=== PATIENT | male | born 1960 | race Caucasian/White ===

== ENCOUNTER 2018-10-16 14:40 | Inpatient (IN) | payer OTHER ==
[~2018-10-16] VITALS: Ht 185.4 cm; Wt 123.4 kg
[2018-10-16 14:45] VITALS: Ht 185.4 cm; Wt 123.4 kg
--- NOTE | 2018-10-16 15:06 | NUR ---
AMBULATORY TO BED 5. C/O GENERALIZED ABDOMINAL PAIN X2 WEEKS. PT STATES ABDOMINAL "DISCOMFORT".
[2018-10-16 15:42] LABS: UA SPECIFIC GRAVITY >=1.030 (1.005-1.035); microscopic required? YES; urine erythrocyte NEGATIVE (NEGATIVE)
[2018-10-16 15:54] LABS: BASOPHIL % 0.7 % (0-2); CALCIUM 10.5 mg/dL (8.5-10.1); CARBON DIOXIDE 28.3 mmol/L (21-32); CREATININE SERUM 2.5 mg/dL (0.7-1.3); PLATELET COUNT 267 x10^3mcL (130-400); POTASSIUM SERUM 4.3 mmol/L (3.5-5.1); RED CELL DISTRIBUTION WIDTH 13.4 % (11.5-14.5)
[2018-10-16 15:58] LABS: ALBUMIN 4.2 g/dL (3.4-5.0); BILIRUBIN TOTAL 0.6 mg/dL (0.20-1.00)
--- NOTE | 2018-10-16 17:02 | NUR ---
PT SITTING ON GURNEY WITH NAD. BREATHING EVEN AND UNLABORED. PT IS HOOKED UP TO FULL MONITORS, WILL CONTINUE TO MONITOR
--- NOTE | 2018-10-16 18:40 | NUR ---
PT STATES PAIN IS 8/10 AT THIS TIME. PT STATES " I WAS JUST TOLD THAT I HAVE DIABETES 2 WEEKS AGO AND GIVEN A MEDICATION FOR DIABETES AND ONE TO PROTECT MY KIDNEYS, IM NOT SURE OF HOW TO CHECK MY BLOOD SUGAR OR WHAT FOODS TO EAT." PT INSTUCTED ON FOODS AND HOW TO CHECK BLOOD SUGAR. INSTRUCTED PT THAT WHEN HE IS ADMITTED, THERE WILL BE MORE PEOPLE TO GO OVER THAT INFORMATION WELL.
--- NOTE | 2018-10-16 19:48 | NUR ---
REPORT GIVEN TO FLOYD STEINBERG TO ASSUME CARE OF PT.
[2018-10-16 20:27] LABS: CHOLESTEROL/HDL RATIO 3.1; MAGNESIUM 2.3 mg/dL (1.8-2.4); PHOSPHOROUS 5.6 mg/dL (2.5-4.9)
--- NOTE | 2018-10-16 20:32 | NUR ---
[facility] ACCOMPANIED BY RN AND TRANSPORTER. PT A/A/O X 4, CALM, COOPERATIVE. AMBULATORY, NO GAIT OR BALANCE IMPAIRMENT NOTED WALKING FROM [facility] TO BED. ON TELE # 5, NSR, HR 71, DENIES CHEST PAIN OR DISCOMFORT AT THIS TIME. NO ACUTE RESPIRATORY DISTRESS NOTED. ABD FIRM, DISTENDED, HYPERACTIVE BOWEL SOUNDS X 4 QUADS, LAST BM 10/15/18, FORMED, C/O INTERMITTENT DULL PAIN 8/10, EXACERBATED BY EATING FOOD, RELIEVED MILDLY BY REST. IV SITE LAC 20G, CDI. ORIENTED PT TO ROOM, BED CONTROLS, CALL LIGHT SYSTEM. SIDE RAILS UP X 2, BED IN LOW POSITION. PT RECENTLY DIAGNOESD WITH DM2, AND LACKS EDUCATION RE: MATTER. WILL ENDORSE TO FLOYD TRIPLETT.
[2018-10-16 21:27] VITALS: BP 108/60
--- NOTE | 2018-10-16 22:53 | NUR ---
PT. C/O ABD. PAIN,LEVEL 8-9/10. PT. STATED THAT HIS ABD. PAIN REOCCURED AFTER EATING. PRN MORPHINE, IVP GIVEN ORDERED. WILL MONITOR. CALL LIGHT REMAINS WITHIN REACH.
--- NOTE | 2018-10-17 01:24 | NUR ---
PT. C/O ABD. PAIN, 5/6-10. PRN NORCO GIVEN. WILL MONITOR.
--- NOTE | 2018-10-17 02:50 | NUR ---
PT. APPEARS TO BE SLEEPING AT THIS TIME. EYES CLOSED. APPEARS COMFORTABLE. IVF INFUSING WELL. NSR ON MONITOR. CALL LIGHT REMAINS WITHIN REACH.
[2018-10-17 05:51] VITALS: BP 111/48
--- NOTE | 2018-10-17 06:17 | NUR ---
PT. AWAKE, SITTING UP IN BED. C/O ABD. PAIN, 7-11/24. PRN MORPHINE IVP GIVEN ORDERED. PT. DENIES NAUSEA. PT. ASKED ABOUT EFFECTIVENESS OF MEDICATION. PER PT, HE'S NOT SURE IF MEDICATION IS WORKING OR IF THE PAIN LEVEL DECREASES. HE ONLY BELIEVES THAT HE FALLS ASLEEP AT TIMES AFTER ADMINISTRATION OF PAIN MEDICATION BECAUSE HE'S TIRED. BLOOD PRESSURE 111/48. IV SITE REMAINS INTACT. WILL ENDORSE PT. CARE TO INCOMING NURSE.
[2018-10-17 06:19] LABS: BASOPHIL % 0.3 % (0-2); PLATELET COUNT 258 x10^3mcL (130-400); RED CELL DISTRIBUTION WIDTH 13.5 % (11.5-14.5)
[2018-10-17 06:33] LABS: CALCIUM 9.6 mg/dL (8.5-10.1); CARBON DIOXIDE 23.2 mmol/L (21-32); MAGNESIUM 2.2 mg/dL (1.8-2.4); PHOSPHOROUS 4.3 mg/dL (2.5-4.9); POTASSIUM SERUM 4.1 mmol/L (3.5-5.1)
--- NOTE | 2018-10-17 07:08 | NUR ---
BOXING MACHINE OPERATOR AT BEDSIDE W/ EXAM IN PROGRESS AT THIS TIME.
--- NOTE | 2018-10-17 07:10 | NUR ---
RECEIVED PT FROM TAR HEATER OPERATOR RN. Colten/CHRISSY. TELE#5. DENIES ANY CHEST PAIN/PRESSURE. RESPIRATIONS EQUAL AND UNLABORED ON RA. DENIES SOB. US JOY LOADER AT BEDSIDE FOR US ABDOMEN. PT C/O DULL INTERMITTENT ABDOMINAL PAIN 09/24, SINCE RECEIVING MORPHINE THIS AM. IV TO LAC PATENT AND INFUSING. NO REDNESS OR SWELLING NOTED. WILL CONTINUE TO MONITOR. CALL LIGHT IN REACH.
[2018-10-17 08:34] VITALS: BP 112/49
--- NOTE | 2018-10-17 08:58 | NUR ---
PT SITTING UP IN BED. NO ACUTE RESP DISTRESS NOTED ON RA. PT DENIES ANY CHEST PAIN/PRESSURE. GIVEN PO MEDS. TOLERATED WELL. PT C/O ABDOMINAL PAIN TO MUQ DULL 11/24. MEDICATED PER EMAR. PT STATES PAIN HAS BEEN CONSTANT OVER PAST FEW DAYS. PT STATES IT GETS WORSE AFTER EATING. IV PATENT AND INFUSING TO LAC. NO REDNESS OR SWELLING NOTED. WILL CONTINUE TO MONITOR. CALL LIGHT IN REACH. BED IN LOWEST POSITION.
[2018-10-17 12:25] VITALS: BP 127/72
--- NOTE | 2018-10-17 14:04 | NUR ---
PAGED DR. CHAO REGARDING ACCU CHECKS AWAITING CALL BACK.
--- NOTE | 2018-10-17 14:09 | NUR ---
SPOKE WITH DR. CHAO REGARDING ACCUCHECKS PER DR. CHAO WILL PUT IN ACCUCHECKS.
--- NOTE | 2018-10-17 14:46 | NUR ---
1. Recommend progressing diet to CCHO, low fat when medically appropriate/ tolerated.
--- NOTE | 2018-10-17 14:46 | NUR ---
Initial Nutrition Assessment: 201T/B CHELLY PENA IA HR Dx: Acute renal failure PMHx: DM( diagnosed 2 weeks ago), HTN, GERD??? PSHx: not documented Labs: BG 114H, BUN 38H, CREAT 2.0H, A1C 6.3H Meds: Colace, morphine, zofran Diet: no order yet PO Intake: NPO since admission Ht: 185.42cm (73") Wt: 123.3 kg (271#) BMI: 35.9 kg/m2 Bed scale: 276.2# IBW: 184# (83.6 kg) %IBW: 147 UBW: 284# Age: 58/M Food Allergies: NKFA Skin: intact Kevin: 22 Edema: none GI: c/o dull intermittent abd pain Last BM: 10/15 Per H&P, Pt is a 58 YO with PMH of HTNm newly diagnosed DM, GERD??? came to the emergency room with c/o dull abdominal pain for past 2 weeks associated with food intake. Pain localizes in lower abdominal quadrant. Pt reports decreased appetite and intentional 10 lbs weight loss (284 lbs--->272) within past week. Pt was diagnosed with DM and started with metformin 2 weeks ago. RDN Visit (10/17): Patient was alert and oriented and was very interested in receibving diet education. Diabetes diet and low fat diet education was provided. FNS received education consult for 'DM, Cardiac diet' on 10/17/18. Spoke with Dr. Sorto that patient currently does not have any diet order. Dr. Sorto said that she will put NPO diet order. Also, she was not sure if the diet will be progressed tomorrow. Discussed recommendations with her. Problem with: N/V/D/C: no Problems with: Chewing/Swallowing: no Current appetite: good Recent wt change: 8# x 15 days %wt change: -2.7% (significant) Vitamin/Supplement use: none Special diet at home: regular Physical activity: patient was doing gym regularly (Mon-Fri), stopped 3 month ago. Want to re-start it soon. Nutrition education given: Diabetes diet education was provided using [facility] handout on 'Type 2 Diabetes Nutrition Therapy'. Concepts like high fiber diet, label reading, types of carbohydrates and portion control were discussed. Patient verbalized understanding and did not have any questions at this time. Food-drug interactions: Colace- high fiber w/2044-4367 ml fluids Education given: yes Estimated Nutritional Needs Based on adjusted body weight 93.5 kg Energy: 9928-1733 kcal/d (20-25 kcal/kg) Protein: 74.8-93.5 g/d (0.8-1.0 g/kg) - preserve LBM Fluid: 0083-9840 ml/d (1 ml/kcal) or per doctor Nutrition Diagnosis 1. Food and nutrition related knowledge deficit related to no prior exposure to nutrition education as evidenced by A1C 6.3 and patient stating no knowledge about food groups, carbohydrates and its impact on blood sugar. 2. Altered nutrition related lab values related to renal and endocrine insufficiency as evidenced by BUN: 38, Creat 2.0, A1C 6.3. Intervention 1. Recommend progressing diet to CCHO, low fat when medically appropriate/ tolerated. Monitor/Evaluate Goal: PO intake at least 75% of estimated needs Monitor: PO intake, Labs, GI function F/U in 2-3 days as high risk 7/5-6
[2018-10-17] MEDS ORDERED: METOPROLOL SUCC50 M2 PO (16:10)
[2018-10-17] MEDS ORDERED: FINASTERIDE5 M1 PO (16:12)
[2018-10-17] MEDS ORDERED: ALLOPURINOL100 MG PO (16:13)
[2018-10-17] MEDS ORDERED: HYT2 PO (16:14)
[2018-10-17] MEDS ORDERED: LIPITOR80 MG PO (16:15)
[2018-10-17] MEDS ORDERED: ASPIR LOW81 MG PO (16:17)
[2018-10-17] MEDS ORDERED: ZIA10 PO (16:20)
[2018-10-17] MEDS ORDERED: HYDROCHLOROTH12.5 M3 PO (16:22)
[2018-10-17] MEDS ORDERED: ZES10 PO (16:24)
--- NOTE | 2018-10-17 16:24 | NUR ---
PT IN BED RESTING COMFORTABLY. NO ACUTE RESP DISTRESS NOTED ON RA. PT STATES PAIN TO ABDOMEN IS STILL THERE DULL BUT TOLERABLE SINCE RECEIVING MORPHINE. IV PATENT AND INFUSING TO LAC. NO REDNESS OR SWELLING NOTED. BLOOD SUGAR CHECKED WAS 102. NO COVERAGE NEEDED. WILL CONTINUE TO MONITOR. CALL LIGHT IN REACH. BED IN LOWEST POSITION.
[2018-10-17 16:52] VITALS: BP 126/80
--- NOTE | 2018-10-17 18:17 | NUR ---
PT ASKING TO EAT SOMETHING. PT ASKING IF HE CAN JUST HAVE SOME APPLE JUICE. CALLED CHAIN OFFBEARER PHONE SPOKE WITH DR. SAWYER PER DR. SAWYER "WILL LET NIGHT TEAM KNOW"
--- NOTE | 2018-10-17 18:27 | NUR ---
PT SITTING UP AT BEDSIDE. NO ACUTE RESP DISTRESS NOTED ON RA. TELE#5. DENIES CHEST PAIN/PRESSURE. IV TO LAC PATENT AND INFUSING. NO REDNESS OR SWELLING NOTED. PT STILL ASKING TO EAT. PT STATES I UNDERSTAND ITS NOT YOU, I JUST WISH I COULDVE EATEN EARLIER. PT STATES ABDOMINAL PAIN TO MUQ IS STILL THERE AND DULL. WILL ENDORSE TO NURSING ADMIN RN. CALL LIGHT IN REACH. BED IN LOWEST POSITION.
--- NOTE | 2018-10-17 19:21 | NUR ---
PT C/O ABDOMINAL PAIN TO MUQ DULL 01/24. MEDICATED PER EMAR. WILL ENDORSE TO CAR CLEANER RN.
[2018-10-17 19:33] VITALS: BP 108/58
--- NOTE | 2018-10-17 19:45 | NUR ---
RECIEVED PT FROM FLOYD RUBALCAVA. PT IS A/OX4, PT IS ON TELE #5 NSR HR 62. PT DENIES ANY CHEST PAIN OR SOB. PT HAS PALPABLE PULSES AND NO EDEMA NOTED. PT LUNG SOUNDS CLEAR BILATERALLY ON RA. BRETHE SOUNDS ARE EVEN AND UNEVEN. PT ABD IS DISTENDED AND FIRM. PT LAST BM WAS 10/15. BOWL SOUNDS HYPOACTIVE. PT C/O OF ABD PAIN, AM NURSE FLOYD RUBALCAVA MEDICATED WITH MORPHINE, WILL REASSESS. PT HAS IV TO LAC INFUSING WELL. CALL LIGHT WITHIN REACH, WILL CONTINUE TO MONITOR.
--- NOTE | 2018-10-17 21:55 | NUR ---
TALKED TO DR. SINGH FOR PT NPO STATUS. PER MD ORDER PT CAN EAT UP UNTIL MIDNIGHT. NPO AFTER MIDNIGHT. PT IS INFORMED.
--- NOTE | 2018-10-18 | NUR ---
PT ASLEEP. BREATHING EVEN AND UNLABORED. NO RESP DISTRESS NOTED. WILL CONITNUE TO MONITOR. CALL LIGHT WITHIN REACH
--- NOTE | 2018-10-18 02:56 | NUR ---
PT C/O OF PAIN. GAVE PT MORPHINE PER MD ORDERS. WILL CONTINUE TO MONITOR.
[2018-10-18 04:41] VITALS: BP 117/71
[2018-10-18 06:10] LABS: BASOPHIL % 0.3 % (0-2); PLATELET COUNT 237 x10^3mcL (130-400); RED CELL DISTRIBUTION WIDTH 12.7 % (11.5-14.5)
--- NOTE | 2018-10-18 06:18 | NUR ---
PT SLEPT ON AND OFF THROUGH OUT THE NIGHT. PT BREATHING IS EVEN AND UNLABORED. PT C/O OF PAIN, GAVE NORCO X2, MORPHINE X1. PT DENIES ANY CHEST PAIN OR SOB AT THIS TIME. PT IS NPO SINCE MIDNIGHT. PT IV TO LAC INTACT AND INFUSING WELL. NO ACUTE CHANGES NOTED. PT COOPERATIVE WITH NURSING CARE.
[2018-10-18 06:36] LABS: ALBUMIN 3.7 g/dL (3.4-5.0); BILIRUBIN TOTAL 0.6 mg/dL (0.20-1.00); CALCIUM 9.4 mg/dL (8.5-10.1); CREATININE SERUM 1.5 mg/dL (0.7-1.3); MAGNESIUM 1.9 mg/dL (1.8-2.4); PHOSPHOROUS 4.3 mg/dL (2.5-4.9); POTASSIUM SERUM 4.1 mmol/L (3.5-5.1); TOTAL PROTEIN, SERUM 7.5 g/dL (6.4-8.2)
--- NOTE | 2018-10-18 07:10 | NUR ---
RECEIVED PT FROM MOTOR OPERATOR RN. Colten/CHRISSY. TELE#5. DENIES CHEST PAIN/PRESSURE. RESPIRATIONS EQUAL AND UNLABORED ON RA. DENIES SOB. PT STATES ABDOMINAL PAIN HAS IMPROVED SINCE BEING MEDICATED THIS AM. PT DENIES ANY N/V. IV TO LAC PATENT AND INFUSING. NO REDNESS OR SWELLING NOTED. WILL CONTINUE TO MONITOR. CALL LIGHT IN REACH. BED IN LOWEST POSITION.
--- NOTE | 2018-10-18 08:47 | NUR ---
DR. LOVING AT BEDSIDE. PER DR. LOVING RECOMMENDS HIDA SCAN IF NOT ABLE TO BE DONE TODAY PT OKAY TO START CLEAR LIQUID DIET.
--- NOTE | 2018-10-18 09:01 | NUR ---
SPOKE WITH PAULINE IN NUC MED. PER TARI PT IS OKAY TO HAVE NORCO BEFORE 10 AM, HIDA SCAN WILL BE DONE LATER TODAY AROUND 2PM TO 3PM.
[2018-10-18 09:04] VITALS: BP 130/65
[2018-10-18 09:09] LABS: calcium (part of PTHIC) 9.4 mg/dL (8.7-10.2)
--- NOTE | 2018-10-18 09:35 | NUR ---
PT SITTING UP AT BEDSIDE. NO ACUTE RESP DISTRESS NOTED ON RA. PT STATES PAIN TO ABDOMEN IS TOLERABLE AT THIS TIME. GIVEN PO MEDS. TOLERATED WELL. IV PATENT AND INFUSING TO LAC. NO REDNESS OR SWELLING NOTED. PT TAKEN OFF FLOOR FOR X RAY OF ABDOMEN VIA WHEELCHAIR. CLEAN UP SUPERVISOR NOTIFIED.
--- NOTE | 2018-10-18 10:41 | NUR ---
DR. BELCHER AT BEDSIDE. PER DR. BELCHER PT OKAY TO EAT AFTER HIDA SCAN.
[2018-10-18 11:55] VITALS: BP 112/62
--- NOTE | 2018-10-18 14:12 | NUR ---
PT TAKEN OFF FLOOR FOR HIDA SCAN.
--- NOTE | 2018-10-18 16:40 | NUR ---
SPOKE WITH DR. CHAO REGARDING HIDA SCAN RESULTS. PT WILL POSSIBLE D/C HOME TODAY.
[2018-10-18 16:48] VITALS: BP 100/63
--- NOTE | 2018-10-18 18:17 | NUR ---
PT IN BED RESTING. NO ACUTE RESP DISTRESS NOTED ON RA. PT C/O ABDOMINAL PAIN TO MUQ 7/10. MEDICATED PER EMAR. PT ATE DINNER AND TOLERATED WELL. IV TO LAC PATENT AND INFUSING. NO REDNESS OR SWELLING NOTED. WILL ENDORSE TO TRUCK BODY BUILDER RN. CALL LIGHT IN REACH. BED IN LOWEST POSITION.
--- NOTE | 2018-10-18 19:10 | NUR ---
PT MADE AWARE FOR NEED TO COLLECT STOOL SAMPLE. PT VERBALIZED UNDERTANDING.
--- NOTE | 2018-10-18 19:40 | NUR ---
RECIEVED PT FROM FLOYD RUBALCAVA. PT IS A/O X4 LAYING IN BED. PT IS ON TELE # 5 SR HR 74. PT DENIES ANY CHEST PAIN OR SOB AT THIS TIME. PT IS PULSES ARE PALPABLE, NO EDEMA NOTED. PT BREATHE SOUNDS ARE EVEN AND UNLABORED. PT BREATHE SOUNDS CLEAR NILATERRALY ON RA. NO SIGNS OF RESP DISTRESS NOTED. PT ABD IS DISTENDED, BOWEL SOUNDS HYPOACTIVE. PT LAS BM 10/15. PT C/O OF ABD PAIN BUT STATES IT IS TOLERABLE, REFUSES PAIN MED AT THIS TIME. PT VOIDS REGULARLY. PT IS AMBULATORY. PT IV TO LAC INFUSING WELL. WILL CONTINUE TO MONITOR, CALL LIGHT WITHIN REACH.
[2018-10-18 21:00] VITALS: BP 99/49
--- NOTE | 2018-10-18 21:42 | NUR ---
PT C/O OF ABD PAIN. GAVE NORCO X1 PER MD ORDER. WILL CONT TO MONITOR.
--- NOTE | 2018-10-19 00:17 | NUR ---
PT IS IN BED ASLEEP. NO RESP DISTRESS NOTED. BREATHING EVEN AND UNLABORED. WILL CONT TO MONITOR.
[2018-10-19 05:38] VITALS: BP 109/49
--- NOTE | 2018-10-19 06:10 | NUR ---
PT SLEPT ON AND OFF THROUGH OUT THE NIGHT. PT BREATHING IS EVEN AND UNLABORED. PT C/O OF PAIN, GAVE NORCO X2. PT DENIES ANY CHEST PAIN OR SOB AT THIS TIME. PT IV TO LAC INTACT AND INFUSING WELL. PT ON TELE #5 NSR. PT HAD NO BM DURING SHIFT. PT HAD NO ACUTE CHANGES NOTED. PT COOPERATIVE WITH NURSING CARE.
[2018-10-19 06:35] LABS: CALCIUM 8.5 mg/dL (8.5-10.1); CARBON DIOXIDE 26.9 mmol/L (21-32); CREATININE SERUM 1.5 mg/dL (0.7-1.3); MAGNESIUM 1.9 mg/dL (1.8-2.4); POTASSIUM SERUM 4.4 mmol/L (3.5-5.1)
[2018-10-19 07:15] LABS: BASOPHIL % 0.7 % (0-2); PLATELET COUNT 218 x10^3mcL (130-400); RED CELL DISTRIBUTION WIDTH 13.1 % (11.5-14.5)
--- NOTE | 2018-10-19 07:35 | NUR ---
RECEIVED PT FROM MINE WEDGE SAWYER. PT AWAKE, ALERT A/OX4. PT ON ROOM AIR WITH NO RESP DISTRESS NOTED. PT ON TELE 5, DENIES CHEST PAIN. PERIPHERAL PULSES PALPABLE, NO EDEMA NOTED. IV ACCESS LAC C/D/I INFUSING NS AT 100ML/HR. PT ABDOMEN DISTENDED AND FIRM WITH ACTIVE BOWEL SOUNDS NOTED. PT REPORTS PAIN 8/10 TO ABDOMEN. PT VOIDING FREELY. PT AMBULATORY WITH NO ISSUES IDENTIFIED. PT REPORTS HE IS "READY TO GO HOME". SAFETY MEASURES IN PLACE, BED LOW AND LOCKED. CALL LIGHT WITHIN REACH.
[2018-10-19 08:16] VITALS: BP 108/56
--- NOTE | 2018-10-19 09:27 | NUR ---
DUE MEDS ADMINISTERED. PT COMPLAINING OF ABDOMINAL PAIN, ASKING FOR PAIN MED. NORCO ADMINISTERED ORDERED PRN (SEE EMAR). ABDOMEN DISTENDED AND FIRM WITH BOWEL SOUNDS NOTED. PT LAST BM 10/15/18, PER PT "HAVING A BOWEL MOVEMENT ISNT MY CONCERN". WILL CONTINUE TO MONITOR.
--- NOTE | 2018-10-19 11:00 | NUR ---
PT RESTING COMFORTABLY WITH NO ACUTE DISTRESS NOTED. SAFETY MEASURES MAINTAINED.
[2018-10-19 12:12] VITALS: BP 117/59
--- NOTE | 2018-10-19 12:24 | NUR ---
Follow-up Nutrition Assessment: 201T/B CHELLY PENA FU HR Dx: Acute renal failure PMHx: DM (diagnosed 2 weeks ago), HTN, GERD??? Labs: (10/19) BUN 29H, CREAT 1.5H, A1C 6.3H Meds: Colace, morphine, Zofran, Amitiza, D 50%, humulin, Lipitor, zofran Diet: Cardiac PO Intake: (10/19) breakfast 90%, (10/18) dinner 100% Weights: (10/16) 123 kg, (10/19) 127.6 kg Skin: intact Kevin: 22 I/Os: (10/19) 3670/ output not documented Edema: none GI: Last BM: 10/15 RDN Visit (10/19): Patient was alert and oriented and said that he ate all of his breakfast this morning. Patient said that he is getting discharged tomorrow. Diabetic diet education was provided during initial assessment along with NCM handout. Patient is asking for another handout that explains the concepts visually and with more pictures. This will be provided to the patient by today. Spoke with JULI Alexandre and she agreed with the recommendations. Estimated Nutritional Needs Based on adjusted body weight 93.5 kg Energy: 8650-3815 kcal/d (20-25 kcal/kg) Protein: 74.8-93.5 g/d (0.8-1.0 g/kg) - preserve LBM Fluid: 9880-3366 ml/d (1 ml/kcal) or per doctor Nutrition Diagnosis 1.Food and nutrition related knowledge deficit related to no prior exposure to nutrition education as evidenced by A1C 6.3 and patient stating no knowledge about food groups, carbohydrates and its impact on blood sugar. (ongoing) 2.Altered nutrition related lab values related to renal and endocrine insufficiency as evidenced by BUN: 29, Creat 1.5, A1C 6.3. (ongoing) Intervention 1. Recommend CCHO(Cardiac) diet. Monitor/Evaluate Goal: Have pt meet at least 75% of estimated needs Monitor: PO intake, Labs, GI function F/U in 3-5 days as moderate risk 78-10
--- NOTE | 2018-10-19 12:24 | NUR ---
1. Recommend CCHO(Cardiac) diet.
--- NOTE | 2018-10-19 14:22 | NUR ---
ALL NEEDS MET AT THIS TIME. PT ABLE TO MAKE NEEDS KNOWN. CALL LIGHT WITHIN REACH. SAFETY MEASURES MAINTAINED.
--- NOTE | 2018-10-19 15:53 | NUR ---
PT SLEEPING AT THIS TIME. BREATHING EVEN AND UNLABORED. NO DISTRESS NOTED.
[2018-10-19 17:10] VITALS: BP 143/70
--- NOTE | 2018-10-19 18:38 | NUR ---
PT STABLE AT THIS TIME. PT REPORTS NO BM FOR THE DAY AND STATES "I AM NOT WORRIED ABOUT THAT". ALL NEEDS TENDED TO THROUGHOUT SHIFT. WILL CONTINUE TO MONITOR AND ENDORSE CARE TO OTR TANKER TRUCK DRIVER. SAFETY MAINTAINED.
--- NOTE | 2018-10-19 19:05 | NUR ---
RECEIVED PT SITTING UP ON SIDE OF BED, NO ACUTE DISTRESS OBSERVED. ABD DISTENDED AND FIRM, DENIES N/V/D, DENIES CONSTIPATION, PT STATES THAT IT IS NORMAL FOR HIM TO NOT HAVE A BM UNLESS HE IS AT HOME. LAST BM 10/15/18. PT C/O 08/24 ABD PAIN, OFFERED PRN TYLENOL BUT PT REFUSED, REQUESTING MOTRIN INSTEAD. AA/OX4, ABLE TO MAKE NEEDS KNOWN. NSR TO TELE #5, NO CP. PULSES PRESENT AND EQUAL THROUGHOUT, NO EDEMA. BREATHING ON RA, EVEN AND UNLABORED, NO RESP DISTRESS OBSERVED. FREELY VOIDS URINE WITH BRP. AMBULATORY AND ABLE TO REPOSITION SELF IN BED. IV TO LAC IN PLACE, DRY, PATENT, INTACT, S/L, NO PAIN, REDNESS OR SWELLING WHEN FLUSHED WITH NS. COMFORT AND SAFETY MEASURES IN PLACE. ALL NEEDS ASSESSED AND ATTENDED TO. CALL LIGHT WITHIN REACH. WILL CONTINUE TO MONITOR
[2018-10-19 20:32] VITALS: BP 121/76
--- NOTE | 2018-10-19 20:42 | NUR ---
PT C/O 08/24 ABD PAIN, MEDICATED WITH PRN MOTRIN PER EMAR
[2018-10-20 05:10] VITALS: BP 110/64
--- NOTE | 2018-10-20 05:59 | NUR ---
NO SIGNIFICANT CHANGES TO REPORT, PT COMPLIED WITH NURSING CARE THROUGHOUT THE SHIFT WITH NO ACUTE EVENTS OVERNIGHT. PT LAYING IN BED AT THIS TIME, BREATHING EVEN AND UNLABORED, NO ACUTE DISTRESS OBSERVED, AROUSABLE TO VERBAL STIMULI. COMFORT AND SAFETY MEASURES MAINTAINED. ALL NEEDS ASSESSED AND ATTENDED TO. CALL LIGHT WITHIN REACH. WILL CONTINUE TO MONITOR AND ENDORSE CARE TO DAY SHIFT NURSE
--- NOTE | 2018-10-20 07:10 | NUR ---
RECIEVED PT RESTING IN BED WITH NO C/O PAIN, DISTRES, OR SOB. A/O X4. TELE MONITOR #5 CONNECTED TO PT. DENIES CP OR PRESSURE. SALINE LOCK AT LAC INTACT AND PATENT WITH NO REDNESS OR INFLAMMATION NOTED. SAFETY PRECAUTIONS IN PLACE, CALL LIGHT WITHIN REACH, WILL MONITOR.
[2018-10-20 07:17] LABS: BASOPHIL % 0.7 % (0-2); PLATELET COUNT 233 x10^3mcL (130-400); RED CELL DISTRIBUTION WIDTH 12.8 % (11.5-14.5)
[2018-10-20 07:19] LABS: CALCIUM 9.2 mg/dL (8.5-10.1); CARBON DIOXIDE 25.3 mmol/L (21-32); CREATININE SERUM 1.4 mg/dL (0.7-1.3); POTASSIUM SERUM 4.2 mmol/L (3.5-5.1)
[2018-10-20 08:07] VITALS: BP 116/67
[2018-10-20 09:28] VITALS: BP 116/67
--- NOTE | 2018-10-20 10:26 | NUR ---
PT OK FOR DISCHARGE PER JULI AMBROCIO. VS WNL. NO PAIN, DISTRESS, CP, OR SOB NOTED AT THIS TIME. DISCHARGE INSTRUCTIONS AND EDUCATION GIVEN TO PT AND PT VERBALIZES UNDERSTANDING. IV REMOVED WITH CATHETER INTACT. NO REDNESS OR INFLAMMATION NOTED TO SITE. HOSPITAL ID BAND REMOVED FROM PT ARM. PT HAS ALL PERSONAL BELONGINGS IN HAND. PT TO BE ESCORTED BY MOLDING AND TRIM INSTALLER TO DOWNSTAIRS LOBBY VIA .
== END 2018-10-20 11:06 | disposition home or self-care (01) | DRG 469 ==
LOC: ED 14:40 → DU 19:22
PROVIDERS: Emergency Medicine; ADMIT Internal Medicine
DX: N17.0 Acute kidney failure with tubular necrosis (principal); E11.65 Type 2 diabetes mellitus with hyperglycemia; E83.39 Other disorders of phosphorus metabolism; E83.50 Unspecified disorder of calcium metabolism; T38.3X5A Adverse effect of insulin and oral hypoglycemic [antidiabetic] drugs, initial encounter; K21.9 Gastro-esophageal reflux disease without esophagitis; I10 Essential (primary) hypertension; M54.9 Dorsalgia, unspecified; G89.29 Other chronic pain; E78.5 Hyperlipidemia, unspecified; N40.0 Benign prostatic hyperplasia without lower urinary tract symptoms; F17.210 Nicotine dependence, cigarettes, uncomplicated; Z68.35 Body mass index [BMI] 35.0-35.9, adult; Z79.84 Long term (current) use of oral hypoglycemic drugs; Y92.009 Unspecified place in unspecified non-institutional (private) residence as the place of occurrence of the external cause
CPT/HCPCS: 78226; 82962; 83880; A9537; G0378; J2270; J7030; Q0092